=== PATIENT | female | born 1990 | race Caucasian/White ===

== ENCOUNTER 2017-06-15 11:34 | Inpatient (IN) | payer MEDICAID ==
[~2017-06-15] VITALS: Ht 149.9 cm; Wt 71.0 kg
[~2017-06-15 11:34] MED LIST: PREN1TAB49
[2017-06-15 12:21] VITALS: BP 108/61; PULSE 77; RESP 18
[2017-06-15] MEDS ORDERED: LACTATED RINGER'S 1,000 ML IV ONE (13:45)
[2017-06-15] MEDS ORDERED: LACTATED RINGER'S 1,000 ML IV SCH (14:45)
--- NOTE | 2017-06-15 14:46 | RADRPT ---
PROCEDURE: US cervix CLINICAL INDICATION: labor TECHNIQUE: Limited OB ultrasound was performed to evaluate the cervix COMPARISON: No prior studies are available for comparison. FINDINGS: There is a single live intrauterine . Normal cardiac activity is identified at a rat e of 129 beats per minute. presentation is cephalic. Placenta is anterior grade II. The cervix measures 3.6 cm in length. There is early dilatation the cervix measuring 3 mm. No signif icant filing is visualized on the images provided. IMPRESSION: Cervix measures 3.6 cm in length. Early dilatation measuring 3 mm in diameter RPTAT: HH .Meet Elkins MD, MD Date Time Electronically viewed and signed by .Meet Elkins MD, on 06/15/2017 14:46 .W/
--- NOTE | 2017-06-15 14:51 | RADRPT ---
PROCEDURE: US OB biophysical profile. CLINICAL INDICATION: Biophysical profile TECHNIQUE: Multiple sonographic images of the pelvis were obtained. The images were reviewed on a PACS workstation. COMPARISON: None FINDINGS: There is a single live intrauterine , in cephalic presentation. A normal heart rate i s identified measuring 129 beats per minute. The amniotic fluid index is within normal limits measur ing 9.4 cm. Biophysical profile: movement 2/2 tone 2/2. breathing 2/2 RASHIDA 2/2 Total 02/09 IMPRESSION: 1. Biophysical profile score of 8/8. 2. Single live intrauterine in cephalic presentation with normal heart rate of 129 b pm. 3. Normal amniotic fluid index of 9.4 cm. RPTAT: AAPP Physician Jackelin Date Time Electronically viewed and signed by Physician Jackelin on 06/15/2017 14:51 JEOVANNY/
[2017-06-15 15:05] LABS: ADD UMIC NO; UR ASCORBIC ACID NEGATIVE (NEGATIVE); UR BILIRUBIN (Dip) NEGATIVE (NEGATIVE); UR BLOOD (Dip) NEGATIVE (NEGATIVE); UR CLARITY CLEAR (CLEAR); UR COLOR STRAW (YELLOW); UR GLUCOSE (Dip) NEGATIVE (NEGATIVE); UR KETONES (Dip) NEGATIVE (NEGATIVE); UR LEUKOCYTE ESTERASE (Dip) NEGATIVE Leu/ul (NEGATIVE); UR NITRITE (Dip) NEGATIVE (NEGATIVE); UR SPECIFIC GRAVITY (Dip) 1.005 (1.003-1.030); UR TOTAL PROTEIN (Dip) NEGATIVE (NEGATIVE); UR UROBILINOGEN (Dip) NEGATIVE (NEGATIVE)
[2017-06-15 15:36] LABS: ABNORMAL IP MESSAGE 1; BASOPHILS % 0.6 % (0.0-2.0); EOSINOPHILS # 0.1 10^3/ul (0.0-0.5); EOSINOPHILS % 1.8 % (0.0-7.0); HEMATOCRIT 32.6 % (37.0-47.0); HEMOGLOBIN 11.2 g/dl (12.0-16.0); LYMPHOCYTES # 1.5 10^3/ul (0.8-2.9); LYMPHOCYTES % 21.8 % (15.0-51.0); MEAN CORPUSCULAR HEMOGLOBIN 32.4 pg (29.0-33.0); MEAN CORPUSCULAR HGB CONC 34.4 g/dl (32.0-37.0); MEAN CORPUSCULAR VOLUME 94.2 fl (82.0-101.0); MEAN PLATELET VOLUME 13.3 fl (7.4-10.4); MONOCYTE # 0.5 10^3/ul (0.3-0.9); MONOCYTES % 6.4 % (0.0-11.0); NEUTROPHIL # 4.9 10^3/ul (1.6-7.5); NEUTROPHILS % 68.6 % (39.0-77.0); PLATELET COUNT 178 10^3/UL (140-415); RED BLOOD COUNT 3.46 10^6/ul (4.20-5.40); WHITE BLOOD COUNT 7.1 10^3/ul (4.8-10.8)
[2017-06-15 15:46] LABS: POSITIVE DIFF @See below
[2017-06-15 15:58] LABS: ALBUMIN/GLOBULIN RATIO 0.97
[2017-06-15 16:01] LABS: POTASSIUM 4.1 mmol/L (3.5-5.1)
[2017-06-15 16:02] LABS: ALBUMIN 3.7 g/dl (3.3-4.9); BILIRUBIN,INDIRECT 0.4 mg/dl (0-1.1); BILIRUBIN,TOTAL 0.4 mg/dl (0.2-1.3); CALCIUM 9.7 mg/dl (8.4-10.2); CREATININE 0.44 mg/dl (0.44-1.00); TOTAL PROTEIN 7.5 g/dl (6.1-8.1)
[2017-06-15] MEDS ORDERED: MAGNESIUM SULFATE 4 GM/100 ML 100 ML IV ONE (18:00)
[2017-06-15] MEDS ORDERED: ACETAMINOPHEN 325 MG TAB PO PRN (18:00)
[2017-06-15] MEDS ORDERED: PRENATAL VITAMIN PO ONE (18:00)
[2017-06-15] MEDS: LACTATED RINGER'S 1,000 ML IV SCH (18:24)
[2017-06-15] MEDS: BETAMET NA PHOS/AC(6 MG/ML) 5ML INJ IM SCH (18:25)
[2017-06-15] MEDS: MAGNESIUM SULFATE 20 GM/500 ML 500 ML IV SCH (19:01)
--- NOTE | 2017-06-15 23:53 | HP ---
Date/Time of Note Date/Time of Note DATE: 06/15/17 TIME: 23:50 OB - History Hx of Present Chief Complaint: contractions and generalized itching Estimated Due Date: Jul 11, 2017 : 3 Para: 2 Spontaneous : 0 Therapeutic : 0 Care: Good Care Ultrasounds: Normal mid trimester US Obstetrical Complications: None Medical Complications: None Past Family/Social History * Past Medical, Surgical, Family and Obstetric Histories reviewed from chart. GBS Status: Unknown OB Admission Exam Vital Signs Vital Signs Vital Signs Date Time Temp Pulse Resp B/P Pulse Ox O2 Delivery O2 Flow Rate FiO2 06/15/17 12:21 98.5 77 18 108/61 97 Room Air Physical Exam Cervical Dilatation: 1cm Effacement: 50% Station: -1 Membranes: Intact Heart Rate: 130's Accelerations: Accelerations Present Decelerations: No Decelerations Varibility: Moderate Last 72 hours Lab Results CBC & BMP 06/15/17 15:01 Liver Function Test 06/15/17 15:01 Alanine Aminotransferase (ALT/SGPT) 67 Albumin 3.7 Alkaline Phosphatase 366 H Aspartate Amino Transf (AST/SGOT) 120 H Direct Bilirubin 0.00 Total Protein 7.5 OB Assessment/Plan Reason for admission: labor Plan: Other Other plan: IV magnesium sulfate IM betamethasone SOHAIL GUSTAFSON MD Jun 15, 2017 23:53
[2017-06-16] MEDS: MAGNESIUM SULFATE 20 GM/500 ML 500 ML IV SCH ×2 (05:01→17:07)
[2017-06-16] MEDS: LACTATED RINGER'S 1,000 ML IV SCH ×2 (05:02→17:14)
--- NOTE | 2017-06-16 09:56 | QN ---
Documentation Comment Post normal vaginal delivery day 1 Afebrile Vital signs are stable Abdomen soft, Uterus firm, lochia normal, extremities normal possible a.m. discharge discussed, KATHLEEN MAE MD Jun 16, 2017 09:56
--- NOTE | 2017-06-16 10:19 | QN ---
Documentation Comment Details 27 years old EDC August 32 weeks and 5/7 day admitted with chief complaint of moderate to mild contraction and generalized body itching,, she was placed on magnesium sulfate for labor, recommended if no more contraction or if contractions are far apart to reduced mag sulfate to 1 g q. one hour and if there is no more contraction DC at 6 PM' planning to start her on Procardia 20 mg every 6 hours, also recommended ursodiol 300 mg 3 times daily. Until the results of the bile acid is available.. KATHLEEN MAE MD Jun 16, 2017 10:14
--- NOTE | 2017-06-16 11:33 | RADRPT ---
PROCEDURE: US OB. CLINICAL INDICATION: labor TECHNIQUE: Multiple sonographic images of the pelvis were obtained. The images were reviewed on a PACS workstation. COMPARISON: 06/15/2017 FINDINGS: There is a single live intrauterine . cardiac activity is identified at a rate of 13 7 beats per minute. presentation is cephalic. Placenta is anterior grade 1 to II Biophysical profile score is as follows: Breathing 2 Movements 2 Tone 2 Fluid volume 2 Amniotic fluid index = 7.5 cm Total biophysical profile score = 8/8 IMPRESSION: Biophysical profile score = 8/8 Borderline oligohydramnios with RASHIDA of 7.5 cm which is decreased from the previous examination where was 9.4 cm RPTAT: HH .Meet Elkins MD, Date Time Electronically viewed and signed by .Meet Elkins MD, on 06/16/2017 11:33 .W/
[2017-06-16] MEDS: PRENATAL VITAMIN PO SCH (13:41)
[2017-06-16] MEDS: URSODIOL 300 MG CAP PO SCH ×2 (13:41→21:40)
--- NOTE | 2017-06-16 18:18 | CONS ---
DATE OF ADMISSION: 06/15/2017 DATE OF CONSULTATION: 06/16/2017 HISTORY OF PRESENT ILLNESS: The patient is with intrauterine at 32 weeks and 6 days, pres ented with contractions. She was placed on magnesium sulfate and given first dose of betamethasone last night. After talking to Dr. Dong and the nurse, apparently she does have some itching for which she was p laced on Actigall 3 times a day starting today. drawn yesterday are not fasting so they will be sent fasting tomorrow. Liver enzymes are elevated. RECOMMENDATIONS: Continue with the magnesium sulfate until the second dose of the betamethasone. I f the patient is asymptomatic in terms of shortness of breath or any complication of magnesium and i f the magnesium levels are not too high, I do recommend continue with the magnesium sulfate until to dickerson morning. Otherwise, it should be stopped. Procardia would not be the best option for the tonia catherine since her blood pressures are too low to tolerate Procardia. Continue with the Actigall and I will see the patient in person tomorrow. I spoke to Dr. Dong and the nurse about the plan. Dictated By: VEDA RUTLEDGE/ANTOINETTE Conf#: [id number] DID#: [id number]
[2017-06-16] MEDS: BETAMET NA PHOS/AC(6 MG/ML) 5ML INJ IM SCH (18:25)
[2017-06-17] MEDS: LACTATED RINGER'S 1,000 ML IV SCH ×2 (03:13→13:40)
[2017-06-17] MEDS: URSODIOL 300 MG CAP PO SCH ×3 (09:03→21:40)
[2017-06-17] MEDS: PRENATAL VITAMIN PO SCH (09:07)
--- NOTE | 2017-06-17 13:57 | QN ---
Documentation Comment 36 weeks 4 days 3 para 2 history of 2 previous , complicated with cholestasis of and low RASHIDA. Perinatology consult, recommended delivery, she is scheduled for repeat at 36 weeks and 5 days due to cholestasis of , low RASHIDA oligohydramnios, on June 18, 2017 at 10:30 AM KATHLEEN MAE MD Jun 17, 2017 13:57
--- NOTE | 2017-06-17 16:55 | CONS ---
DATE OF ADMISSION: 06/15/2017 DATE OF CONSULTATION: 06/17/2017 PERINATOLOGY NOTE I received a call from Dr. Dong. Apparently this patient is not at 33 weeks today, she is 36 week s and 4 days, with increasing liver enzymes secondary to cholestasis and therefore delivery is recom mended. Dictated By: VEDA SARKAR MD ST/ANTOINETTE Conf#: [id number] DID#: [id number]
--- NOTE | 2017-06-17 16:59 | RADRPT ---
PROCEDURE: US OB limited. CLINICAL INDICATION: Oligohydramnios TECHNIQUE: Multiple sonographic images of the pelvis were obtained. The images were reviewed on a PACS workstation. COMPARISON: 06/16/2017 and 06/15/2017 FINDINGS: There is a viable intrauterine gestation. There is a normal amount of amniotic fluid with an RASHIDA = 10.9 cm. Cardiac activity is present with 152 beats per minute. The placenta is anterior. No evidence of placenta previa or abruption. IMPRESSION: Normal amount of amniotic fluid. Estimated gestational age: 37 weeks and 2 days RPTAT:AAJJ Physician Beth Date Time Electronically viewed and signed by Physician Beth on 06/17/2017 16:27 /
[2017-06-18] MEDS: LACTATED RINGER'S 1,000 ML IV SCH (01:31)
[2017-06-18 06:32] LABS: ABNORMAL IP MESSAGE 1; BASOPHILS % 0.6 % (0.0-2.0); EOSINOPHILS # 0.1 10^3/ul (0.0-0.5); EOSINOPHILS % 2.1 % (0.0-7.0); HEMATOCRIT 31.7 % (37.0-47.0); HEMOGLOBIN 10.6 g/dl (12.0-16.0); LYMPHOCYTES # 1.7 10^3/ul (0.8-2.9); LYMPHOCYTES % 26.1 % (15.0-51.0); MEAN CORPUSCULAR HGB CONC 33.4 g/dl (32.0-37.0); MEAN CORPUSCULAR VOLUME 95.8 fl (82.0-101.0); MEAN PLATELET VOLUME 13.3 fl (7.4-10.4); MONOCYTE # 0.5 10^3/ul (0.3-0.9); MONOCYTES % 7.1 % (0.0-11.0); NEUTROPHIL # 4.2 10^3/ul (1.6-7.5); NEUTROPHILS % 62.9 % (39.0-77.0); PLATELET COUNT 175 10^3/UL (140-415); RED BLOOD COUNT 3.31 10^6/ul (4.20-5.40); RED CELL DISTRIBUTION WIDTH 13.3 % (11.5-14.5); WHITE BLOOD COUNT 6.6 10^3/ul (4.8-10.8)
[2017-06-18 06:49] LABS: ALBUMIN 3.3 g/dl (3.3-4.9); ALBUMIN/GLOBULIN RATIO 0.91; BILIRUBIN,INDIRECT 0.3 mg/dl (0-1.1); BILIRUBIN,TOTAL 0.3 mg/dl (0.2-1.3); CALCIUM 8.9 mg/dl (8.4-10.2); CREATININE 0.45 mg/dl (0.44-1.00); POTASSIUM 4.4 mmol/L (3.5-5.1); TOTAL PROTEIN 6.9 g/dl (6.1-8.1)
[2017-06-18 06:49] LABS: INR 0.89; PROTIME 12.1 Sec (11.9-14.9); PT RATIO 0.9
[2017-06-18 06:50] LABS: PARTIAL THROMBOPLASTIN TIME 26.5 Sec (25.0-35.0)
[2017-06-18 07:03] LABS: POSITIVE DIFF @See below
[2017-06-18] MEDS ORDERED: CEFAZOLIN 2 GM/50 ML (PMX) 50 ML IVPB ONE (07:59)
[2017-06-18] MEDS ORDERED: LACTATED RINGER'S 1,000 ML IV SCH (08:45)
[2017-06-18] MEDS ORDERED: OXYTOCIN 30 UNITS/LR 500 ML IV PRN ×2 (09:00→14:00)
[2017-06-18] MEDS ORDERED: OXYTOCIN 30 UNITS/LR 500 ML IV SCH (09:00)
[2017-06-18] MEDS ORDERED: MISOPROSTOL 200 MCG TAB PR PRN ×2 (09:00→14:00)
[2017-06-18] MEDS ORDERED: CEFAZOLIN 2 GM/50 ML (PMX) 50 ML IV SCH (09:00)
[2017-06-18] MEDS ORDERED: METHYLERGONOVINE 0.2 MG INJ IM PRN ×2 (09:00→14:00)
[2017-06-18] MEDS ORDERED: CARBOPROST 250 MCG INJ IM PRN ×2 (09:00→14:00)
[2017-06-18] MEDS ORDERED: ONDANSETRON 4 MG INJ ONE (09:55)
[2017-06-18] MEDS ORDERED: EPHEDrine SULFATE 50 MG/5 ML SYG ONE (09:55)
[2017-06-18] MEDS ORDERED: morphine SULFATE/PF (10 MG/10 ML) INJ ONE (09:55)
[2017-06-18] MEDS ORDERED: OXYTOCIN 10 UNIT INJ ONE (09:55)
[2017-06-18] MEDS ORDERED: METOCLOPRAMIDE 10 MG INJ ONE (09:55)
[2017-06-18] MEDS ORDERED: OXYTOCIN 30 UNITS/LR 500 ML IV ONE (09:55)
[2017-06-18] MEDS ORDERED: ONDANSETRON 4 MG INJ IV PRN (11:30)
[2017-06-18] MEDS ORDERED: DIPHENHYDRAMINE 50 MG INJ IV PRN (11:30)
[2017-06-18] MEDS ORDERED: morphine 4 MG/ML VIAL IV PRN (11:30)
[2017-06-18] MEDS ORDERED: NALOXONE (0.4 MG/ML) INJ IV PRN (11:30)
[2017-06-18] MEDS ORDERED: morphine SULFATE/PF (10 MG/10 ML) INJ SPINAL ONE (11:30)
[2017-06-18] MEDS ORDERED: morphine 2 MG INJ IV PRN (11:30)
[2017-06-18] MEDS ORDERED: EPHEDrine SULFATE 50 MG/5 ML SYG IV PRN (11:30)
--- NOTE | 2017-06-18 12:29 | OPR ---
Operative Report Planned Procedure Free Text/Dictation 27 years old EDC July 11, 2017 history of 2 previous section complicated with cholestasis of generalized body itching low RASHIDA perinatology consulted recommended delivery,. She had requested and signed consent for voluntary sterilization bilateral tubal ligation at the time of , complication of surgery including but not limited to bowel and bladder injury infection hemorrhage wound hematoma also the failure rate of tubal ligation. Increased risk of ectopic , future failure to conceive was explained to her she would like to proceed with repeat for the third time and bilateral tubal ligation Procedure date Jun 18, 2017 Procedure(s) Repeat bilateral tubal ligation Performed by see signature line [place] SOREN SWANN Anesthesiologist: ANTHONY MELGAR MD Pre-procedure diagnosis 36 weeks 5 days complicated with cholestasis as well as low RASHIDA generalized body itching perinatologist .recommended delivery. Anesthesia Type: spinal Post-Procedure Post-procedure diagnosis Same as above Findings Live Baby boy 9 and 9 Estimated Blood Loss: 500 - 600 mls Specimen(s) none Grafts/Implant(s) none Complication(s) none Pt Condition post procedure: stable Procedure Description Under satisfactory spinal anesthesia patient prepped and draped and placed in supine position. Pfannenstiel incision was made old scar was removed. Incision carried through the subcutaneous tissue bleeders brought under control with electrocautery. Fascia incised to the length of incision. Rectus muscle divided in midline. Peritoneum exposed and entered to a vertical incision. Exploration of abdomen revealed [gravid uterus at term normal-appearing tubes and ovaries.] Bladder flap was developed. Transverse incision was made in the lower segment of the uterus. Amniotic sac ruptured, [clear amniotic fluid noted.] Live baby boy was delivered from unengaged vertex.Naso oropharyngeal suction was performed. Baby handed to the team for immediate attention. Patient received 20 units of Pitocin. Placenta delivered manually intact. Uterine cavity cleaned with a wet sponge and drainage established. Uterus closed in 2 layers using Monocryl #1 in continuous fashion. Bilateral tubal ligation performed by identifying the fimbria and ampullar section of the right fallopian tube grasped by a [place] that portion of the tube was resected, suture material used #0 plain catgut which was reinforced with the same suture material cut end of the tube was cauterized and the specimen submitted for the pathology the same procedure performed for the opposite side, peritoneal cavity irrigated with warm saline. Sponge needle instrument reported to be correct. Abdominal peritoneum closed with 2-0 chromic catgut continuously rectus muscle approximated with few interrupted 2-0 chromic catgut. Fascia closed with #1 PDS in a continuous fashion. Subcutaneous tissue irrigated with warm saline and approximated with several interrupted 2-0 chromic catgut skin closed with N sorb. Estimated blood loss [600 cc]. Urine bag containing [200] mL of [clear] urine. Patient tolerated procedure well and transferred to recovery room in good condition. KATHLEEN MAE MD Jun 18, 2017 12:25
[2017-06-18] MEDS ORDERED: HYDROCODONE/APAP (5/325) TAB PO PRN ×2 (14:00)
[2017-06-18] MEDS ORDERED: CEFAZOLIN 1 GM/50 ML (PMX) 50 ML IVPB SCH ×2 (14:00→16:30)
[2017-06-18] MEDS ORDERED: LANOLIN 7 GM TUBE TOP PRN (14:00)
[2017-06-18] MEDS ORDERED: OXYCODONE/ACETAMINOPHEN (5/325) TAB PO PRN ×2 (14:00)
[2017-06-18] MEDS: OXYTOCIN 30 UNITS/LR 500 ML IV SCH ×2 (14:12→20:35)
[2017-06-18 14:15] VITALS: BP 111/67; PULSE 73; RESP 20
[2017-06-18 15:15] VITALS: BP 107/55; PULSE 71; RESP 20
[2017-06-18 20:00] VITALS: BP 101/59; PULSE 67; RESP 18
[2017-06-18] MEDS: SENNA/DOCUSATE NA (8.6MG/50MG) TAB PO SCH (20:37)
[2017-06-18] MEDS: KETOROLAC 30 MG INJ IV PRN (20:44)
[2017-06-19] MEDS: OXYTOCIN 30 UNITS/LR 500 ML IV SCH ×4 (01:53→09:53)
[2017-06-19 04:00] VITALS: BP 90/62; PULSE 74; RESP 18
[2017-06-19 07:46] VITALS: BP 102/56; PULSE 76; RESP 20
[2017-06-19] MEDS: SENNA/DOCUSATE NA (8.6MG/50MG) TAB PO SCH ×2 (09:52→21:38)
[2017-06-19] MEDS: KETOROLAC 30 MG INJ IV PRN (09:52)
[2017-06-19 10:54] LABS: ABNORMAL IP MESSAGE 1; BASOPHILS % 0.5 % (0.0-2.0); EOSINOPHILS # 0.1 10^3/ul (0.0-0.5); EOSINOPHILS % 0.6 % (0.0-7.0); HEMATOCRIT 32.8 % (37.0-47.0); LYMPHOCYTES # 1.1 10^3/ul (0.8-2.9); LYMPHOCYTES % 14.5 % (15.0-51.0); MEAN CORPUSCULAR HGB CONC 33.5 g/dl (32.0-37.0); MEAN CORPUSCULAR VOLUME 95.3 fl (82.0-101.0); MEAN PLATELET VOLUME 13.3 fl (7.4-10.4); MONOCYTE # 0.3 10^3/ul (0.3-0.9); MONOCYTES % 3.7 % (0.0-11.0); NEUTROPHIL # 6.2 10^3/ul (1.6-7.5); NEUTROPHILS % 80.3 % (39.0-77.0); PLATELET COUNT 186 10^3/UL (140-415); RED BLOOD COUNT 3.44 10^6/ul (4.20-5.40); RED CELL DISTRIBUTION WIDTH 13.2 % (11.5-14.5); WHITE BLOOD COUNT 7.7 10^3/ul (4.8-10.8)
[2017-06-19 11:02] LABS: POSITIVE DIFF @See below
[2017-06-19] MEDS: IBUPROFEN 600 MG TAB PO SCH ×3 (12:00→23:38)
[2017-06-19 12:09] VITALS: BP 96/55; PULSE 77; RESP 20
--- NOTE | 2017-06-19 12:10 | QN ---
Documentation Comment Post day 1 Afebrile, vital signs are stable Abdomen soft. Bowel sounds present. Incision clean healing well , bowel sounds present. Extremities normal, ambulation encouraged. KATHLEEN MAE MD Jun 19, 2017 12:10
--- NOTE | 2017-06-19 12:18 | QN ---
Documentation Comment Post day 1 Afebrile Vital signs are stable Abdomen soft uterus firm incision dry. Bowel sounds present. Lochia normal. Extremity normal. Ambulation encouraged. KATHLEEN MAE MD Jun 19, 2017 12:18
[2017-06-19 15:45] VITALS: BP 105/55; PULSE 75; RESP 18
[2017-06-19 20:00] VITALS: BP 104/62; PULSE 70; RESP 19
[2017-06-20 04:00] VITALS: BP 99/54; PULSE 73; RESP 19
[2017-06-20] MEDS: IBUPROFEN 600 MG TAB PO SCH ×4 (05:34→23:54)
[2017-06-20 08:00] VITALS: BP 100/57; PULSE 64; RESP 18
[2017-06-20] MEDS: SENNA/DOCUSATE NA (8.6MG/50MG) TAB PO SCH ×2 (10:17→21:00)
--- NOTE | 2017-06-20 11:56 | QN ---
Documentation Comment Post day 2 Afebrile Vital signs are stable Abdomen soft. Incision dry. Bowel sounds present. Patient had normal bowel movement. Extremities normal. Plan of a.m. discharge discussed . KATHLEEN MAE MD Jun 20, 2017 11:56
--- NOTE | 2017-06-20 12:06 | QN ---
Documentation Comment Post day 2 Afebrile. Vital signs are stable Abdomen soft. Incision dry. Good bowel sounds. Had normal BM, plan of possible a.m. discharge discussed. KATHLEEN MAE MD Jun 20, 2017 12:06
[2017-06-20 16:00] VITALS: BP 109/70; PULSE 66; RESP 18
[2017-06-20 20:00] VITALS: BP 110/60; PULSE 65; RESP 18
[2017-06-21 04:44] VITALS: BP 115/68; PULSE 73; RESP 18
[2017-06-21] MEDS: IBUPROFEN 600 MG TAB PO SCH ×2 (06:02→12:20)
[2017-06-21 08:30] VITALS: BP 103/61; PULSE 63; RESP 18
[2017-06-21] MEDS: SENNA/DOCUSATE NA (8.6MG/50MG) TAB PO SCH (08:51)
[2017-06-21] MEDS ORDERED: DIPHTH/TET/ACEL PERTUSS (ADULT) 0.5 ML VIAL IM* ONE (09:00)
--- NOTE | 2017-06-21 13:30 | DS ---
Date/Time of Note Date/Time of Note DATE: 06/21/17 TIME: 13:25 Discharge Summary Admission/Discharge Info Admit Date/Time Jun 15, 2017 at 16:45 Discharge Date/Time June 21, 2017 at 1320 Discharge Diagnosis Post repeat date 3 Consults Perinatology Procedures Repeat at 36 weeks and 4 days Hx of Present Illness 36 weeks 4 days suspected cholestasis of with generalized body itching, history of previous section. Perinatology recommended delivery Hospital Course Satisfactory uneventful Home Meds Reported Medications Vits W-Ca,Fe,Fa(<1MG) () 1 Tab Tablet 03/24/10 Follow-up Plan Post instruction given recommended to be seen at the clinic in 1 week Primary Care Provider Not On Staff Doctor Time spent on discharge: < 30 minutes Pending Labs Laboratory Tests Test 06/21/17 08:28 Hepatitis B Surface Antigen NEGATIVE (NEGATIVE) KATHLEEN MAE MD Jun 21, 2017 13:30
[2017-06-24 13:17] LABS: CHENODEOXYCHOLIC ACID 4.2 umol/L (< OR = 3.1); CHOLIC ACID 6.8 umol/L (< OR = 1.8); DEOXYCHOLIC ACID <0.5 umol/L (< OR = 2.4)
== END 2017-06-21 15:50 | disposition home or self-care (01) | DRG 765 ==
LOC: OBT 11:34 → L-D 11:34 → OBT 16:45 → PP1 16:45 → L-D 06-18 07:40 → PP1 06-18 14:10
PROVIDERS: ADMIT Obstetrics & Gynecology; ATTEND Obstetrics & Gynecology
PROC: 10D00Z1 Extraction of Products of Conception, Low, Open Approach (ICD-10-PCS; principal; 2017-06-19)
PROC: 0UB70ZZ Excision of Bilateral Fallopian Tubes, Open Approach (ICD-10-PCS; 2017-06-19)
DX: O60.14X0 Preterm labor third trimester with preterm delivery third trimester, not applicable or unspecified (principal); K83.1 Obstruction of bile duct; O26.62 Liver and biliary tract disorders in childbirth; O41.03X0 Oligohydramnios, third trimester, not applicable or unspecified; O34.211 Maternal care for low transverse scar from previous cesarean delivery; Z3A.36 36 weeks gestation of pregnancy; Z37.0 Single live birth; Z30.2 Encounter for sterilization
CPT/HCPCS: 36415; 76816; 76817; 76818; 80053; 81003; 83735; 83789; 85025; 85610; 85730; 86592; 86850; 86900; 86901; 87086; 87340; 88305; 90715; 94760; 96360; 99464; G0463; J0690; J0702; J1885; J2274; J2405; J2590; J2765; J3475; J7120